=== PATIENT | female | born 2000 | race Caucasian/White ===

== ENCOUNTER 2019-10-04 16:03 | Emergency (ER) | payer OTHER ==
[2019-10-04 16:10] VITALS: BP 115/66
[2019-10-04 16:24] LABS: RAPID STREP SCREEN Negative (Negative)
--- NOTE | 2019-10-04 16:43 | ED Physician Documentation ---
History of Present Illness - Stated complaint Stated Complaint: Sore throat - Chief complaint Chief Complaint: Heent - History obtained from History obtained from: Patient - History of Present Illness Timing: How many weeks ago (1) Pain level max: 7 Pain level now: 7 - Additonal information Additional information: 19-year-old female states has a history of recurrent strep pharyngitis. She states that she has had a sore throat for the past week. Worse with swallowing, better with rest. No fevers. Mild rhinorrhea and congestion. No cough. No vomiting. No possibility of . She states that she saw white patches on her tonsils today. No fevers. Review of Systems Constitutional: denies: Fever, Chills GI: denies: Vomiting, Diarrhea : denies: Now EGA Skin: denies: Rash PD PAST MEDICAL HISTORY - Past Medical History Past Medical History: No - Past Surgical History Past Surgical History: No - Present Medications Home Medications: Ambulatory Orders Medication Instructions Recorded Confirmed Cephalexin [Keflex] 500 mg PO Q6H #40 capsule 10/04/19 - Allergies Allergies/Adverse Reactions: Allergies Allergy/AdvReac Type Severity Reaction Status Date / Time No Known Drug Allergies Allergy Verified 10/04/19 16:08 - Living Situation Living Situation: reports: With family Living Arrangement: reports: At home - Social History Does the pt have substance abuse?: No - Family History Family history: reports: Non contributory PD ED PE NORMAL - Vitals Vital signs reviewed: Yes - General General: Alert and oriented X 3, No acute distress, Well developed/nourished - HEENT HEENT: PERRL, Ears normal, Moist mucous membranes, Other (Posterior oropharynx is erythematous with tonsillar exudates. Normal phonation. No trismus. Uvula midline.) - Neck Neck: Supple, no meningeal sign, No adenopathy - Cardiac Cardiac: RRR, Strong equal pulses - Respiratory Respiratory: No respiratory distress, Clear bilaterally - Abdomen Abdomen: Soft, Non tender, Non distended - Derm Derm: Warm and dry, No rash - Neuro Neuro: Alert and oriented X 3 - Psych Psych: Normal mood, Normal affect Results - Vitals Vitals: Vital Signs - 24 hr 10/04/19 16:08 Temperature 36.9 C Heart Rate 71 Respiratory 17 Rate Blood Pressure 115/66 O2 Saturation 99 Oxygen O2 Source Room air - Labs Labs: Laboratory Tests 10/04/19 16:12 Group A Strep Rapid Negative PD MEDICAL DECISION MAKING - ED course Complexity details: reviewed results, considered differential, d/w patient ED course: Patient with what appears to be strep pharyngitis clinically. Rapid strep is negative, but given her recurrent history, we will treat her with antibiotics. She is well-appearing, nontoxic. Afebrile. No evidence of peritonsillar or retropharyngeal abscess. Patient counseled regarding signs and symptoms for which I believe and urgent re-evaluation would be necessary. Patient with good understanding of and agreement to plan and is comfortable going home at this time This document was made in part using voice recognition software. While efforts are made to proofread this document, sound alike and grammatical errors may occur. Departure - Departure Disposition: 01 Home, Self Care Clinical Impression: Pharyngitis Qualifiers: Pharyngitis/tonsillitis etiology: unspecified etiology Qualified Code(s): J02.9 - Acute pharyngitis, unspecified Condition: Good Instructions: ED Strep Pharyngitis Poss Follow-Up: [facility] [Provider Group] your,doctor in 1 week [Other] Prescriptions: Cephalexin [Keflex] 500 mg PO Q6H #40 capsule Comments: Take all antibiotics until gone. Return if you worsen. For routine women's well exams, contact [facility], their new name is [facility]ne[facility]. If your symptoms continue, you may need to be referred to an ear nose and throat doctor. Discharge Date/Time: 10/04/19 16:49
== END 2019-10-04 16:49 | disposition home or self-care (01) ==
LOC: ED 16:03
DX: J02.9 Acute pharyngitis, unspecified (principal)
CPT/HCPCS: 87070; 87430; 99283; 99284